=== PATIENT | female | born 1965 | race Caucasian/White ===

== ENCOUNTER 2020-03-29 18:55 | Emergency (ER) | payer BC, SELFPAY ==
[2020-03-29] MEDS ORDERED: IBUPROFEN 600 MG TAB PO ONE (20:29)
--- NOTE | 2020-03-29 20:32 | Event Note ---
ED Screening Note Date of service: 03/29/20 Time: 20:31 ED Screening Note: 54-year-old female presents to the emergency room for lower back pain times today. Patient also is noted to have a temperature 102.1 heart regular 121 in triage. She denies any injuries. She denies any dysuria. No nausea no vomiting or cough. This initial assessment/diagnostic orders/clinical plan/treatment(s) is/are subject to change based on patients health status, clinical progression and re- assessment by fellow clinical providers in the ED. Further treatment and workup at subsequent clinical providers discretion. Patient/guardian urged not to elope from the ED as their condition may be serious if not clinically assessed and managed. Initial orders include:
[2020-03-29 21:17] LABS: Bilirubin,Urine NEG (Negative); Blood,Urine SM (Negative); Color,Urine Yellow (Yellow)
[2020-03-29 21:35] LABS: Basophils % (Auto) 0.2 % (0.0-1.8); Eosinophils % (Auto) 0.1 % (0.0-4.3); Hematocrit 37.3 % (30.3-42.9); Hemoglobin 12.9 gm/dl (10.1-14.3); Lymphocytes # (Auto) 1.4 K/mm3 (1.2-5.4); Lymphocytes % (Auto) 26.7 % (13.4-35.0); Mean Corpuscular HGB Conc 35 % (30-34); Mean Corpuscular Volume 83 fl (79-97); Monocytes # (Auto) 0.4 K/mm3 (0.0-0.8); Monocytes % (Auto) 8.2 % (0.0-7.3); Platelet Count 163 K/mm3 (140-440); Red Blood Count 4.48 M/mm3 (3.65-5.03); Red Cell Distribution Width 13.8 % (13.2-15.2)
[2020-03-29 21:54] LABS: Alanine Aminotransferase 15 units/L (7-56); Albumin 3.6 g/dL (3.9-5); Blood Urea Nitrogen 8 mg/dL (7-17); Calcium 8.5 mg/dL (8.4-10.2); Hemolysis Index 8
[2020-03-29 21:58] LABS: BUN/Creatinine Ratio 13
[2020-03-29 22:43] VITALS: BP 116/73
--- NOTE | 2020-03-29 23:12 | Emergency Department Report ---
ED General Adult HPI - General Chief complaint: Back Pain/Injury Stated complaint: LOWER BACK PAIN PUI?: Yes Time Seen by Provider: 03/29/20 22:37 Source: patient Mode of arrival: Ambulatory Limitations: No Limitations - History of Present Illness Initial comments: The patient was evaluated in the emergency department for symptoms described in the history of present illness. He/she was evaluated in the context of the global COVID-19 pandemic, which necessitated consideration that the patient might be at risk for infection with the virus that causes COVID-19. Institutional protocols and algorithms that pertain to the evaluation of patients at risk for COVID-19 are in a state of rapid change based on information released by regulatory bodies including the CDC and federal and state organizations. These policies and algorithms were followed during the patient's care in the emergency department. Please note that these policies, procedures and recommendations changed on a rapid basis. During the entire history and physical examination, I had on complete personal protective equipment. This patient is a pleasant and cooperative 54-year-old female, with a distant history of hysterectomy, who does not have a local primary care doctor, who states she does not have chronic medical conditions, who works as a airplane cleaner, who presents with nontraumatic paralumbar back pain, present for 2 days. She denies all other complaints. She specifically denies fever, weakness, abdominal pain, cough, urinary symptoms, weakness, numbness, bladder or bowel retention/incontinence, saddle anesthesia, and midline spinal back pain. She also denies IV drug use. She does not have any exposure to Covid positive individuals that she is aware of. Her pain was improved with ibuprofen which was given prior to my personal evaluation. She denies additional injuries and denies additional complaints, and endorses readiness for discharge. -: days(s) Location: back Radiation: non-radiation Severity scale (0 -10): 0 Quality: aching Consistency: intermittent Improves with: medication, rest Worsens with: none Associated Symptoms: denies other symptoms - Related Data Previous Rx's Medication Instructions Recorded Last Taken Type Acetaminophen [Non-Aspirin Extra 500 mg PO Q6HR PRN #30 tablet 03/29/20 Unknown Rx Strength] Ibuprofen [Motrin] 600 mg PO Q8H PRN #30 tablet 03/29/20 Unknown Rx Allergies Allergy/AdvReac Type Severity Reaction Status Date / Time No Known Allergies Allergy Unverified 03/29/20 19:54 ED Review of Systems ROS: Stated complaint: LOWER BACK PAIN Other details as noted in HPI Comment: All other systems reviewed and negative Musculoskeletal: back pain ED Past Medical Hx - Past Medical History Previous Medical History?: No - Surgical History Past Surgical History?: No - Medications Home Medications: Home Medications Medication Instructions Recorded Confirmed Last Taken Type Acetaminophen [Non-Aspirin Extra 500 mg PO Q6HR PRN #30 tablet 03/29/20 Unknown Rx Strength] Ibuprofen [Motrin] 600 mg PO Q8H PRN #30 tablet 03/29/20 Unknown Rx ED Physical Exam - General Limitations: No Limitations General appearance: alert, in no apparent distress - Head Head exam: Present: atraumatic, normocephalic - Eye Eye exam: Present: normal appearance, EOMI. Absent: nystagmus - ENT ENT exam: Present: normal exam, normal orophraynx, mucous membranes moist, normal external ear exam - Neck Neck exam: Present: normal inspection, full ROM. Absent: tenderness, meningismus - Respiratory Respiratory exam: Present: normal lung sounds bilaterally. Absent: respiratory distress, wheezes, rales, rhonchi, stridor, decreased breath sounds - Cardiovascular Cardiovascular Exam: Present: regular rate, normal rhythm, normal heart sounds. Absent: bradycardia, tachycardia, irregular rhythm, systolic murmur, diastolic murmur, rubs, gallop - GI/Abdominal GI/Abdominal exam: Present: soft, normal bowel sounds. Absent: distended, tenderness, guarding, rebound, rigid, pulsatile mass - Extremities Exam Extremities exam: Present: normal inspection, full ROM, other (2+ pulses noted in the bilateral upper and lower extremities. There is no palpable cord. negative Homans sign. Muscular compartments are soft. The pelvis is stable.). Absent: pedal edema, calf tenderness - Back Exam Back exam: Present: normal inspection, full ROM. Absent: tenderness, CVA tenderness (R), CVA tenderness (L), muscle spasm, paraspinal tenderness, vertebral tenderness - Neurological Exam Neurological exam: Present: alert, oriented X3, normal gait, other (No facial droop. Tongue midline. Extraocular movements intact bilaterally. Facial sensation intact to light touch in V1, V2, V3 distribution bilaterally. 5 and a 5 strength in 4 extremities. Sensation intact to light touch in 4 extremities.). Absent: motor sensory deficit - Psychiatric Psychiatric exam: Present: normal affect, normal mood - Skin Skin exam: Present: warm, dry, intact, normal color. Absent: rash ED Course Vital Signs 03/29/20 03/29/20 20:27 22:42 Temperature 102.1 F H 98.7 F Pulse Rate 121 H 97 H Respiratory 20 16 Rate Blood Pressure 116/73 Blood Pressure 160/92 [Left] O2 Sat by Pulse 95 94 Oximetry ED Medical Decision Making - Lab Data Result diagrams: 03/29/20 20:29 03/29/20 20:29 Vital Signs 03/29/20 03/29/20 20:27 22:42 Temperature 102.1 F H 98.7 F Pulse Rate 121 H 97 H Respiratory 20 16 Rate Blood Pressure 116/73 Blood Pressure 160/92 [Left] O2 Sat by Pulse 95 94 Oximetry Lab Results 03/29/20 03/29/20 03/29/20 Range/Units 20:29 20:29 21:00 WBC 5.2 (4.5-11.0) K/mm3 RBC 4.48 (3.65-5.03) M/mm3 Hgb 12.9 (10.1-14.3) gm/dl Hct 37.3 (30.3-42.9) % MCV 83 (79-97) fl MCH 29 (28-32) pg MCHC 35 H (30-34) % RDW 13.8 (13.2-15.2) % Plt Count 163 (140-440) K/mm3 Lymph % (Auto) 26.7 (13.4-35.0) % [place] % (Auto) 8.2 H (0.0-7.3) % Eos % (Auto) 0.1 (0.0-4.3) % Baso % (Auto) 0.2 (0.0-1.8) % Lymph # (Auto) 1.4 (1.2-5.4) K/mm3 [place] # (Auto) 0.4 (0.0-0.8) K/mm3 Eos # (Auto) 0.0 (0.0-0.4) K/mm3 Baso # (Auto) 0.0 (0.0-0.1) K/mm3 Seg Neutrophils % 64.8 (40.0-70.0) % Seg Neutrophils # 3.4 (1.8-7.7) K/mm3 Sodium 136 L (137-145) mmol/L Potassium 3.5 L (3.6-5.0) mmol/L Chloride 102.7 (98-107) mmol/L Carbon Dioxide 20 L (22-30) mmol/L Anion Gap 17 mmol/L BUN 8 (7-17) mg/dL Creatinine 0.6 (0.6-1.2) mg/dL Estimated GFR > 60 ml/min BUN/Creatinine Ratio 13 % Glucose 122 H (65-100) mg/dL Calcium 8.5 (8.4-10.2) mg/dL Total Bilirubin 0.30 (0.1-1.2) mg/dL AST 18 (5-40) units/L ALT 15 (7-56) units/L Alkaline Phosphatase 75 (35-129) units/L Total Protein 7.3 (6.3-8.2) g/dL Albumin 3.6 L (3.9-5) g/dL Albumin/Globulin Ratio 1.0 % Urine Color Yellow (Yellow) Urine Turbidity Clear (Clear) Urine pH 7.0 (5.0-7.0) Ur Specific [place] 1.009 (1.003-1.030) Urine Protein 100 mg/dl (Negative) mg/dL Urine Glucose (UA) Neg (Negative) mg/dL Urine Ketones Neg (Negative) mg/dL Urine Blood Sm (Negative) Urine Nitrite Neg (Negative) Urine Bilirubin Neg (Negative) Urine Urobilinogen 2.0 (<2.0) mg/dL Ur Leukocyte Esterase Neg (Negative) Urine WBC (Auto) 1.0 (0.0-6.0) /HPF Urine RBC (Auto) 3.0 (0.0-6.0) /HPF U Epithel Cells (Auto) < 1.0 (0-13.0) /HPF - Medical Decision Making Differential diagnosis, including but not limited to: Asymptomatic COVID-19, mechanical/musculoskeletal back pain Assessment and plan: 54-year-old female who presents during the Covid pandemic, with a complaint of paralumbar back pain. She was initially febrile and tachycardic. These have both resolved. She has no midline spinal tenderness. She has no back tenderness. She has no abdominal tenderness. She has no abdominal complaints. She denies using IV drugs. Examination and history at this time are not consistent with intra-abdominal infection, or spinal cord infection, or discitis/osteomyelitis. Laboratory studies were ordered prior to my personal evaluation, and they are fairly un remarkable. Patient counseled that she most likely has asymptomatic COVID-19. Also counseled that she most likely has mechanical back pain. Rest, ice, compression, elevation, avoidance of heavy lifting and strenuous physical activities, alternating Tylenol/ibuprofen [id number], and follow-up with outpatient primary care doctor. Patient is currently afebrile with reassuring vital signs, in good spirits, in no acute distress, pleasant, calm and cooperative, and suitable for trial of outpatient management. Critical care attestation.: If time is entered above; I have spent that time in minutes in the direct care of this critically ill patient, excluding procedure time. ED Disposition Clinical Impression: Lower back pain, Acute febrile illness, Suspected 2019 novel coronavirus infection Disposition: TO HOME OR SELFCARE Is pt being admited?: No Does the pt Need Aspirin: No Condition: Stable Instructions: COVID-19, Acute Back Pain, Adult Additional Instructions: As we discussed, the patient most likely has novel coronavirus/COVID. the symptoms of COVID will typically persist 10 to 14 days. There is no cure at this time for COVID. Please make certain to self isolate and self quarantine, follow-up with an outpatient primary care doctor within the next 3 to 5 days, wash hands with soap and water frequently, thoroughly and often, patient may take the prescribed medications as needed and directed. Advance diet and drink plenty of fluids as tolerated. Avoid interactions with the very elderly, very young, and those with chronic medical conditions. Return to the emergency room right away with new pain, worsening pain, migration of pain, projectile vomiting, change in mental status, confusion, inability to tolerate liquid feeds, new, worsened or different symptoms not present on the initial emergency room evaluation. Rest, avoid heavy lifting, and avoid strenuous physical activities. Alternate ice packs and heat packs as needed for pain. Take the pain medication as needed and directed. Anabell comentamos, es muy probable que el paciente tenga un nuevo coronavirus / COVID. los sntomas de COVID generalmente persisten de 10 a 14 frost. No existe kian en guillermina momento para COVID. Asegrese de aislarse y ponerse en cuarentena, mona un seguimiento con un mdico de atencin primaria para pacientes ambulatorios dentro de los prximos 3 a 5 frost, lvese las chari con agua y jabn con frecuencia, a fondo y con frecuencia, el paciente puede harpreet los medicamentos recetados segn sea necesario y se le indique. Avance en la dieta y ayanna muchos lquidos segn los tolere. Evite las interacciones con personas muy mayores, muy jvenes y con enfermedades crnicas. Regrese a la elisha de emergencias de inmediato con dolor nuevo, empeoramiento del dolor, migracin del dolor, vmitos en proyectil, cambio en el estado mental, confusin, incapacidad para tolerar alimentos lquidos, sntomas nuevos, empeorados o diferentes que no estn presentes en la evaluacin inicial de la elisha de emergencias. Descanse, evite levantar objetos pesados ??y evite las actividades fsicas extenuantes. Alterne bolsas de hielo y bolsas de calor segn sea necesario para el dolor. Varna los analgsicos segn sea necesario y segn las indicaciones. Referrals: [facility] MD INGRID [Primary Care Provider] - 3-5 Days NIKKY EVANS MD [Staff Physician] - 3-5 Days Forms: Work/School Release Form(ED) Print Language: GREENLANDIC
== END 2020-03-29 23:34 | disposition home or self-care (01) ==
LOC: ED 18:55
DX: M54.5 Low back pain (principal); R50.9 Fever, unspecified; Z20.828 Contact with and (suspected) exposure to other viral communicable diseases
CPT/HCPCS: 36415; 80053; 81001; 85025; 99283